=== PATIENT | male | born 1950 | race Native Hawaiian/Other Pacific Islander ===

== ENCOUNTER 2017-02-27 15:29 | Emergency (ER) | payer MEDICARE, OTHER ==
[2017-02-27] MEDS ORDERED: ONDANSETRON 4 MG/2 ML VIAL IVP STA (17:05)
[2017-02-27] MEDS ORDERED: KETOROLAC 30 MG/ML 1 ML VIAL IVP STA (17:05)
[2017-02-27] MEDS ORDERED: SODIUM CHLORIDE 0.9% 2,000 ML IV ONE (17:05)
[2017-02-27 17:25] VITALS: RESP 18
[2017-02-27 17:46] LABS: Basophils % (A) 0 %; CH 32.5; CHCM 34.6; Eosinophils # (A) 0.1 k/uL (0-0.7); Eosinophils % (A) 1 %; HCT 39.6 % (39.0-53.0); HDW 2.62; Luc # (Auto) 0.07; Luc % (Auto) 1; Lymphocytes # (A) 0.8 k/uL (1.0-4.8); Lymphocytes % (A) 9 %; MCH 33.4 pg (25.0-35.0); MCHC 35.4 g/dL (31.0-37.0); MCV 94.3 fL (80.0-100.0); Mean Platelet Volume 7.9; Monocytes # (A) 0.6 k/uL (0-1.0); Monocytes % (A) 6 %; Neutrophils # (A) 7.8 k/uL (1.3-7.7); Neutrophils % (A) 83 %; WBC 9.5 k/uL (3.8-10.6); WBC (Perox) 9.35
[2017-02-27 18:00] LABS: ALT 26 U/L (21-72); AST 17 U/L (17-59); Alkaline Phosphatase 64 U/L (38-126); Anion Gap 12 mmol/L; Blood Urea Nitrogen 21 mg/dL (9-20); Calcium 9.3 mg/dL (8.4-10.2); Carbon Dioxide 28 mmol/L (22-30); Chloride 95 mmol/L (98-107); Glucose 147 mg/dL (74-99); Non-African American GFR(MDRD) >60 (>60 ml/min/1.73 sqM); Potassium 4.1 mmol/L (3.5-5.1); Sodium 135 mmol/L (137-145); Total Bilirubin 1.2 mg/dL (0.2-1.3)
--- NOTE | 2017-02-27 18:02 | ED ---
Nausea/Vomiting/Diarrhea HPI - General Chief complaint: Nausea/Vomiting/Diarrhea Stated complaint: fever Time Seen by Provider: 02/27/17 16:44 Source: patient Mode of arrival: ambulatory Limitations: no limitations - History of Present Illness Initial comments: Patient is a 66-year-old male with a past medical history of liver transplant presents with a chief complaint of nausea and vomiting. Patient states this has been going on for about 2 days. Patient states that he was around his grandchildren who had similar symptoms several days ago. Patient cannot identify any aggravating or alleviating factors however he does state that he is more nauseous when he tries to eat solid foods. He states he has been able to keep water down. Patient states she has thrown up about 4 times a day, it consists of bile, and stomach contents. MD complaint: nausea, vomiting Onset/Timin -: days(s) Description of Vomiting: food contents, watery, bilious Associated Abdominal Pain: No Radiation: none Severity: moderate Improves with: none Worsens with: eating Context: sick contacts Associated Symptoms: denies other symptoms - Related Data Home Medications Medication Instructions Recorded Confirmed Acetaminophen Tab [Tylenol Tab] 1,000 mg PO Q6HR PRN 02/27/17 02/27/17 Atorvastatin [Lipitor] 20 mg PO HS 02/27/17 02/27/17 Tacrolimus [Prograf] 1 mg PO HS 02/27/17 02/27/17 Tacrolimus [Prograf] 2 mg PO QAM 02/27/17 02/27/17 Allergies Allergy/AdvReac Type Severity Reaction Status Date / Time cephalexin [From Keflex] Allergy Unknown Verified 02/27/17 17:01 Review of Systems ROS Statement: Those systems with pertinent positive or pertinent negative responses have been documented in the HPI. Patient admits to headache, nausea, and vomiting. Patient denies any dizziness , visual changes, chest pain, shortness of breath, abdominal pain, dysuria, diarrhea, constipation. ROS Other: All systems not noted in ROS Statement are negative. Past Medical History Past Medical History: Hyperlipidemia, Myocardial Infarction ([place]) Additional Past Medical History / Comment(s): Hep C History of Any Multi-Drug Resistant Organisms: None Reported Additional Past Surgical History / Comment(s): liver transplant Past Psychological History: No Psychological Hx Reported Smoking Status: Current every day smoker Past Alcohol Use History: None Reported Past Drug Use History: None Reported General Exam Limitations: no limitations General appearance: alert, in no apparent distress Head exam: Present: atraumatic, normocephalic Eye exam: Present: normal appearance ENT exam: Present: mucous membranes moist Neck exam: Present: normal inspection Respiratory exam: Present: decreased breath sounds Cardiovascular Exam: Present: regular rate, normal rhythm GI/Abdominal exam: Present: soft Rectal exam: Present: deferred Extremities exam: Present: normal inspection Back exam: Present: normal inspection Neurological exam: Present: alert, oriented X3 Psychiatric exam: Present: normal affect, normal mood Skin exam: Present: warm, dry, intact Course Vital Signs 02/27/17 02/27/17 02/27/17 15:40 17:03 18:16 Temperature 99.4 F 98.7 F 99.1 F Pulse Rate 107 H 88 86 Respiratory 17 18 18 Rate Blood Pressure 136/71 141/76 141/72 O2 Sat by Pulse 94 L 93 L 96 Oximetry Medical Decision Making - Medical Decision Making Patient is 66-year-old male who presents with chief complaint of nausea and vomiting. This been going on for 2 days. Patient has a history of liver transplant, and his main concern is that he is unable to keep down his antirejection medications. Patient states that he was recently around his grandchildren who had the same gastrointestinal symptoms. The patient states he thinks he may have picked up the virus that they had. Patient denies any chest pain, shortness of breath, dysuria. We'll send basic lab work, we'll check electrolytes, liver profile. Patient given 2 L of IV fluid in the emergency department, and Zofran for nausea. 7:06 PM On reevaluation, the patient states that his nausea has subsided. He is able to tolerate by mouth intake at this time. Patient states he does not have any other concerns. This time, patient is stable for discharge. Instructed to return to the emergency department if his symptoms worsen, or change in anyway. Further instructed to follow up with his primary care physician in 3-5 days. Patient will be prescribed Zofran, and Motrin. - Lab Data Result diagrams: 02/27/17 17:35 02/27/17 17:35 Lab Results 02/27/17 02/27/17 Range/Units 17:35 17:35 WBC 9.5 (3.8-10.6) k/uL RBC 4.20 L (4.30-5.90) m/uL Hgb 14.0 (13.0-17.5) gm/dL Hct 39.6 (39.0-53.0) % MCV 94.3 (80.0-100.0) fL MCH 33.4 (25.0-35.0) pg MCHC 35.4 (31.0-37.0) g/dL RDW 13.0 (11.5-15.5) % Plt Count 152 (150-450) k/uL Neutrophils % 83 % Lymphocytes % 9 % Monocytes % 6 % Eosinophils % 1 % Basophils % 0 % Neutrophils # 7.8 H (1.3-7.7) k/uL Lymphocytes # 0.8 L (1.0-4.8) k/uL Monocytes # 0.6 (0-1.0) k/uL Eosinophils # 0.1 (0-0.7) k/uL Basophils # 0.0 (0-0.2) k/uL Sodium 135 L (137-145) mmol/L Potassium 4.1 (3.5-5.1) mmol/L Chloride 95 L (98-107) mmol/L Carbon Dioxide 28 (22-30) mmol/L Anion Gap 12 mmol/L BUN 21 H (9-20) mg/dL Creatinine 0.96 (0.66-1.25) mg/dL Est GFR (MDRD) Af Amer >60 (>60 ml/min/1.73 sqM) Est GFR (MDRD) Non-Af >60 (>60 ml/min/1.73 sqM) Glucose 147 H (74-99) mg/dL Calcium 9.3 (8.4-10.2) mg/dL Total Bilirubin 1.2 (0.2-1.3) mg/dL AST 17 (17-59) U/L ALT 26 (21-72) U/L Alkaline Phosphatase 64 (38-126) U/L Total Protein 7.0 (6.3-8.2) g/dL Albumin 4.3 (3.5-5.0) g/dL Disposition Clinical Impression: Nausea and vomiting, Viral enteritis Disposition: HOME SELF-CARE Condition: Good Instructions: Acute Nausea and Vomiting (ED) Referrals: Nonstaff,Physician [Primary Care Provider] - 1-2 days Time of Disposition: 19:12
[2017-02-27 19:30] VITALS: BP 142/69; PULSE 81; TEMP 98.7
== END 2017-02-27 19:31 | disposition home or self-care (01) ==
LOC: EC 15:29
DX: A08.4 Viral intestinal infection, unspecified (principal); E78.5 Hyperlipidemia, unspecified; F17.200 Nicotine dependence, unspecified, uncomplicated; Z88.1 Allergy status to other antibiotic agents; Z79.899 Other long term (current) drug therapy
CPT/HCPCS: 99284; 96374; 96375; 96361 ×2; 36415; 80053; 85025; J2405; J1885

== ENCOUNTER → 2019-04-09 | Outpatient (CLI) | payer MEDICARE, OTHER ==
--- NOTE | 2019-04-09 14:48 | CT ---
EXAMINATION TYPE: CT chest wo con DATE OF EXAM: 04/09/2019 COMPARISON: None HISTORY: Difficulty breathing CT DLP: 457.5 mGycm. Automated Exposure Control for Dose Reduction was Utilized. TECHNIQUE: CT scan of the thorax is performed without IV contrast. FINDINGS: There is mild diffuse pulmonary emphysema. There is subpleural reticular interstitial infiltrate in t he periphery of both lungs. There is no suspicious pulmonary mass. There is no mediastinal adenopathy . There are no hilar masses. Heart size is fairly normal. There is no evidence of bronchial obstructi on. There is no aortic aneurysm. No bronchiectasis. IMPRESSION: Mild pulmonary emphysema. Subpleural mild peripheral reticular interstitial density consi stent with fairly mild interstitial fibrosis.
== END | disposition home or self-care (01) ==
LOC: RADCTMAIN 14:08
PROVIDERS: ATTEND Internal Medicine Critical Care Medicine
DX: J43.9 Emphysema, unspecified (principal); J84.9 Interstitial pulmonary disease, unspecified; Z88.1 Allergy status to other antibiotic agents
CPT/HCPCS: 71250

== ENCOUNTER 2019-08-01 21:18 | Inpatient (IN) | payer MEDICARE, OTHER ==
[2019-08-01] MEDS ORDERED: IPRATROPIUM 0.5 MG/2.5 ML NEBU INHALATION STA (21:33)
[2019-08-01] MEDS ORDERED: methylPREDNISolone SOD SUCCI 125 MG/2 ML VIAL IV STA (21:33)
[2019-08-01] MEDS ORDERED: ALBUTEROL NEBULIZED 2.5 MG/3 ML INHALATION STA (21:33)
--- NOTE | 2019-08-01 21:48 | ED ---
General Adult HPI - General Chief complaint: Shortness of Breath Stated complaint: SOB Time Seen by Provider: 08/01/19 21:27 Source: patient, RN notes reviewed, old records reviewed Mode of arrival: wheelchair Limitations: no limitations - History of Present Illness Initial comments: 68-year-old male history of COPD and a current tobacco use presenting with 2 days of worsening cough and dyspnea. Cough productive of white sputum. Patient reports increased wheezing and difficulty breathing. He denies fever. He has some chest pain which is worse with cough. Previous history of CAD. No history DVT or PE. He denies lower extremity pain or swelling. Denies abdominal pain. Patient does follow with pulmonology - Related Data Home Medications Medication Instructions Recorded Confirmed Acetaminophen Tab [Tylenol Tab] 1,000 mg PO Q6HR PRN 02/27/17 02/27/17 Atorvastatin [Lipitor] 20 mg PO HS 02/27/17 02/27/17 Tacrolimus [Prograf] 1 mg PO HS 02/27/17 02/27/17 Tacrolimus [Prograf] 2 mg PO QAM 02/27/17 02/27/17 Previous Rx's Medication Instructions Recorded Ibuprofen [Motrin] 800 mg PO Q6H PRN #20 tab 02/27/17 Ondansetron [Zofran ODT] 4 mg PO Q8HR #12 tab 02/27/17 Allergies Allergy/AdvReac Type Severity Reaction Status Date / Time cephalexin [From Keflex] Allergy Unknown Verified 08/01/19 21:23 Review of Systems ROS Statement: Those systems with pertinent positive or pertinent negative responses have been documented in the HPI. ROS Other: All systems not noted in ROS Statement are negative. Past Medical History Past Medical History: Hyperlipidemia, Myocardial Infarction ([place]) Additional Past Medical History / Comment(s): Hep C History of Any Multi-Drug Resistant Organisms: None Reported Additional Past Surgical History / Comment(s): liver transplant Past Psychological History: No Psychological Hx Reported Smoking Status: Current every day smoker Past Alcohol Use History: None Reported Past Drug Use History: None Reported General Exam Limitations: no limitations General appearance: alert, in no apparent distress Head exam: Present: atraumatic, normocephalic Eye exam: Present: normal appearance, PERRL ENT exam: Present: normal exam, mucous membranes dry Neck exam: Present: normal inspection. Absent: tenderness, meningismus Respiratory exam: Present: wheezes, decreased breath sounds Cardiovascular Exam: Present: normal rhythm, tachycardia GI/Abdominal exam: Present: soft. Absent: distended, tenderness Extremities exam: Present: normal inspection, normal capillary refill. Absent: pedal edema Back exam: Present: normal inspection. Absent: full ROM Neurological exam: Present: alert, oriented X3, CN II-XII intact. Absent: motor sensory deficit Psychiatric exam: Present: normal affect, normal mood Skin exam: Present: warm, dry, intact. Absent: cyanosis, diaphoretic Course Vital Signs 08/01/19 08/01/19 08/01/19 21:23 21:36 22:18 Temperature 98 F Pulse Rate 108 H 98 Respiratory 26 H 22 Rate Blood Pressure 144/85 O2 Sat by Pulse 93 L Oximetry 08/01/19 08/01/19 08/01/19 22:19 22:25 22:43 Temperature Pulse Rate 98 106 H 107 H Respiratory 18 Rate Blood Pressure 150/82 O2 Sat by Pulse 98 Oximetry EKG Findings - EKG Comments: EKG Findings:: EKG: Sinus tachycardia, left atrial enlargement, no ST segment elevation. Rate of 101, CA interval 148, QRS duration 94, QTC 443 Medical Decision Making - Medical Decision Making 68 yo male with history of COPD and current tobacco use presenting with cough and dyspnea. X-ray obtained, consistent with pulmonary fibrosis, no heart failure, no pneumonia. Patient has normal CBC, negative BNP, negative d-dimer, negative troponin. Given albuterol, Atrovent, steroids in the emergency Department with some improvement. Will be admitted for continued treatment of COPD exacerbation and pulmonary fibrosis. Pulmonology placed on consult. Case discussed with Dr. Nick who will admit patient. - Lab Data Result diagrams: 08/01/19 21:50 08/01/19 21:50 Lab Results 08/01/19 08/01/19 08/01/19 Range/Units 21:50 21:50 21:50 WBC 7.6 (3.8-10.6) k/uL RBC 4.10 L (4.30-5.90) m/uL Hgb 12.8 L (13.0-17.5) gm/dL Hct 39.9 (39.0-53.0) % MCV 97.3 (80.0-100.0) fL MCH 31.2 (25.0-35.0) pg MCHC 32.1 (31.0-37.0) g/dL RDW 13.0 (11.5-15.5) % Plt Count 167 (150-450) k/uL Neutrophils % 80 % Lymphocytes % 11 % Monocytes % 6 % Eosinophils % 1 % Basophils % 1 % Neutrophils # 6.1 (1.3-7.7) k/uL Lymphocytes # 0.8 L (1.0-4.8) k/uL Monocytes # 0.5 (0-1.0) k/uL Eosinophils # 0.1 (0-0.7) k/uL Basophils # 0.1 (0-0.2) k/uL PT (9.0-12.0) sec INR (<1.2) APTT (22.0-30.0) sec D-Dimer (<0.60) mg/L FEU Sodium 140 (137-145) mmol/L Potassium 4.7 (3.5-5.1) mmol/L Chloride 106 (98-107) mmol/L Carbon Dioxide 26 (22-30) mmol/L Anion Gap 8 mmol/L BUN 29 H (9-20) mg/dL Creatinine 1.15 (0.66-1.25) mg/dL Est GFR (CKD-EPI)AfAm 76 (>60 ml/min/1.73 sqM) Est GFR (CKD-EPI)NonAf 66 (>60 ml/min/1.73 sqM) Glucose 137 H (74-99) mg/dL Plasma Lactic Acid Uziel (0.7-2.0) mmol/L Calcium 9.1 (8.4-10.2) mg/dL Magnesium 1.7 (1.6-2.3) mg/dL Total Bilirubin 0.7 (0.2-1.3) mg/dL AST 21 (17-59) U/L ALT 15 (4-49) U/L Alkaline Phosphatase 96 (38-126) U/L Troponin I (0.000-0.034) ng/mL NT-Pro-B Natriuret Pep 358 pg/mL Total Protein 7.3 (6.3-8.2) g/dL Albumin 4.2 (3.5-5.0) g/dL Influenza Type A RNA (Not Detectd) Influenza Type B (PCR) (Not Detectd) 08/01/19 08/01/19 08/01/19 Range/Units 21:50 21:50 21:50 WBC (3.8-10.6) k/uL RBC (4.30-5.90) m/uL Hgb (13.0-17.5) gm/dL Hct (39.0-53.0) % MCV (80.0-100.0) fL MCH (25.0-35.0) pg MCHC (31.0-37.0) g/dL RDW (11.5-15.5) % Plt Count (150-450) k/uL Neutrophils % % Lymphocytes % % Monocytes % % Eosinophils % % Basophils % % Neutrophils # (1.3-7.7) k/uL Lymphocytes # (1.0-4.8) k/uL Monocytes # (0-1.0) k/uL Eosinophils # (0-0.7) k/uL Basophils # (0-0.2) k/uL PT 10.2 (9.0-12.0) sec INR 0.9 (<1.2) APTT 24.6 (22.0-30.0) sec D-Dimer (<0.60) mg/L FEU Sodium (137-145) mmol/L Potassium (3.5-5.1) mmol/L Chloride (98-107) mmol/L Carbon Dioxide (22-30) mmol/L Anion Gap mmol/L BUN (9-20) mg/dL Creatinine (0.66-1.25) mg/dL Est GFR (CKD-EPI)AfAm (>60 ml/min/1.73 sqM) Est GFR (CKD-EPI)NonAf (>60 ml/min/1.73 sqM) Glucose (74-99) mg/dL Plasma Lactic Acid Uziel (0.7-2.0) mmol/L Calcium (8.4-10.2) mg/dL Magnesium (1.6-2.3) mg/dL Total Bilirubin (0.2-1.3) mg/dL AST (17-59) U/L ALT (4-49) U/L Alkaline Phosphatase (38-126) U/L Troponin I 0.014 (0.000-0.034) ng/mL NT-Pro-B Natriuret Pep pg/mL Total Protein (6.3-8.2) g/dL Albumin (3.5-5.0) g/dL Influenza Type A RNA Not Detected (Not Detectd) Influenza Type B (PCR) Not Detected (Not Detectd) 08/01/19 08/01/19 Range/Units 21:50 21:50 WBC (3.8-10.6) k/uL RBC (4.30-5.90) m/uL Hgb (13.0-17.5) gm/dL Hct (39.0-53.0) % MCV (80.0-100.0) fL MCH (25.0-35.0) pg MCHC (31.0-37.0) g/dL RDW (11.5-15.5) % Plt Count (150-450) k/uL Neutrophils % % Lymphocytes % % Monocytes % % Eosinophils % % Basophils % % Neutrophils # (1.3-7.7) k/uL Lymphocytes # (1.0-4.8) k/uL Monocytes # (0-1.0) k/uL Eosinophils # (0-0.7) k/uL Basophils # (0-0.2) k/uL PT (9.0-12.0) sec INR (<1.2) APTT (22.0-30.0) sec D-Dimer 0.22 (<0.60) mg/L FEU Sodium (137-145) mmol/L Potassium (3.5-5.1) mmol/L Chloride (98-107) mmol/L Carbon Dioxide (22-30) mmol/L Anion Gap mmol/L BUN (9-20) mg/dL Creatinine (0.66-1.25) mg/dL Est GFR (CKD-EPI)AfAm (>60 ml/min/1.73 sqM) Est GFR (CKD-EPI)NonAf (>60 ml/min/1.73 sqM) Glucose (74-99) mg/dL Plasma Lactic Acid Uziel 1.2 (0.7-2.0) mmol/L Calcium (8.4-10.2) mg/dL Magnesium (1.6-2.3) mg/dL Total Bilirubin (0.2-1.3) mg/dL AST (17-59) U/L ALT (4-49) U/L Alkaline Phosphatase (38-126) U/L Troponin I (0.000-0.034) ng/mL NT-Pro-B Natriuret Pep pg/mL Total Protein (6.3-8.2) g/dL Albumin (3.5-5.0) g/dL Influenza Type A RNA (Not Detectd) Influenza Type B (PCR) (Not Detectd) Disposition Clinical Impression: Acute exacerbation of chronic obstructive pulmonary disease Disposition: ADMITTED IP TO THIS HOSP Condition: Stable Is patient prescribed a controlled substance at d/c from ED?: No Referrals: Sujit Lai MD [Primary Care Provider] - 1-2 days Decision to Admit Reason: Admit from EC Decision Date: 08/01/19 Decision Time: 23:24
--- NOTE | 2019-08-01 22:10 | XR ---
EXAMINATION TYPE: XR chest 2V DATE OF EXAM: 08/01/2019 COMPARISON: 04/06/2019 HISTORY: Short of breath TECHNIQUE: 2 views FINDINGS: There is coarse interstitial density in the lungs. There is some pleural and pulmonary scar ring at the lung apices. There is no gross heart failure. Heart size is normal. There are chest leads . IMPRESSION: Moderate pulmonary fibrosis that has progressed compared to old exam. No heart failure se en.
[2019-08-01 22:11] LABS: Basophils # (A) 0.1 k/uL (0-0.2); Basophils % (A) 1 %; Eosinophils # (A) 0.1 k/uL (0-0.7); Eosinophils % (A) 1 %; HCT 39.9 % (39.0-53.0); HGB 12.8 gm/dL (13.0-17.5); Lymphocytes # (A) 0.8 k/uL (1.0-4.8); Lymphocytes % (A) 11 %; MCH 31.2 pg (25.0-35.0); MCHC 32.1 g/dL (31.0-37.0); MCV 97.3 fL (80.0-100.0); Mean Platelet Volume 8.2; Monocytes # (A) 0.5 k/uL (0-1.0); Monocytes % (A) 6 %; Neutrophils # (A) 6.1 k/uL (1.3-7.7); Neutrophils % (A) 80 %; Platelet Count 167 k/uL (150-450); WBC 7.6 k/uL (3.8-10.6)
[2019-08-01 22:21] LABS: INR 0.9 (<1.2); Partial Thromboplastin Time 24.6 sec (22.0-30.0); Prothrombin Time 10.2 sec (9.0-12.0)
[2019-08-01 22:22] LABS: Albumin 4.2 g/dL (3.5-5.0); Calcium 9.1 mg/dL (8.4-10.2); Magnesium 1.7 mg/dL (1.6-2.3); Total Bilirubin 0.7 mg/dL (0.2-1.3); Total Protein 7.3 g/dL (6.3-8.2)
[2019-08-01 22:23] LABS: Potassium 4.7 mmol/L (3.5-5.1)
[2019-08-01] MEDS ORDERED: IPRATROPIUM-ALBUTEROL 3 ML NEB INHALATION PRN (23:21)
[2019-08-02] MEDS: methylPREDNISolone SOD SUCCI 125 MG/2 ML VIAL IV SCH ×3 (01:37→12:57)
--- NOTE | 2019-08-02 01:39 | P.HPIM ---
History of Present Illness H&P Date: 08/01/19 Chief Complaint: Shortness of breath productive sputum 68-year-old male with history of hepatitis C status post liver transplant, COPD not on home oxygen Patient comes in today due to 2 day history of shortness of breath worse than his baseline. Associated with productive cough of whitish greenish sputum. Denies any fevers or chills denies any sick contact denies any recent traveling denies any sore throat or runny nose. Patient tested negative for influenza in the ED. Patient admits to ongoing smoking of at least half a pack a day he smokes outside has been getting exposed to the cold weather he thinks that has played a role and to that this attack of exacerbation. He otherwise is compliant with his medications. He does not use any home oxygen. In the ED chest x-ray showed worsening fibrosis compared to before. Patient was admitted for COPD management and pulmonary evaluation Otherwise patient denies any abdominal pain nausea vomiting denies any changes in his bowel or urinary habits Review of Systems Pertinent positives as noted in HPI. All other systems were reviewed and are negative Past Medical History Past Medical History: Cancer, Chest Pain / Angina, COPD, Hyperlipidemia, Liver Disease, Myocardial Infarction ([place]) Additional Past Medical History / Comment(s): Hep C, liver cancer Last Myocardial Infarction Date:: 2016 History of Any Multi-Drug Resistant Organisms: None Reported Additional Past Surgical History / Comment(s): liver transplant in 2008 Past Anesthesia/Blood Transfusion Reactions: No Reported Reaction Past Psychological History: No Psychological Hx Reported Smoking Status: Former smoker Past Alcohol Use History: None Reported Past Drug Use History: None Reported - Past Family History Mother Family Medical History: Myocardial Infarction ([place]), Pneumonia Father Family Medical History: Myocardial Infarction ([place]) Medications and Allergies Home Medications Medication Instructions Recorded Confirmed Type Acetaminophen Tab [Tylenol Tab] 1,000 mg PO Q6HR PRN 02/27/17 02/27/17 History Atorvastatin [Lipitor] 20 mg PO HS 02/27/17 08/02/19 History Ibuprofen [Motrin] 800 mg PO Q6H PRN #20 tab 02/27/17 Rx Ondansetron [Zofran ODT] 4 mg PO Q8HR #12 tab 02/27/17 Rx Tacrolimus [Prograf] 1 mg PO HS 02/27/17 08/02/19 History Tacrolimus [Prograf] 2 mg PO QAM 02/27/17 08/02/19 History Allergies Allergy/AdvReac Type Severity Reaction Status Date / Time cephalexin [From Keflex] Allergy Unknown Verified 08/01/19 21:23 Physical Exam Vitals: Vital Signs Temp Pulse Pulse Resp BP BP Pulse Ox 08/02/19 00:05 98.1 F 109 H 20 157/74 92 L 08/01/19 22:43 107 H 08/01/19 22:25 106 H 08/01/19 22:19 98 18 150/82 98 08/01/19 22:18 98 08/01/19 21:36 22 08/01/19 21:23 98 F 108 H 26 H 144/85 93 L Intake and Output 08/01/19 08/01/19 08/02/19 14:59 22:59 06:59 Other: # Voids 1 Weight 72.575 kg 72.575 kg Constitutional: No acute distress, conversant, pleasant Eyes: Anicteric sclerae, moist conjunctiva, no lid-lag Pupils equal round reactive to light ENMT: NC/AT Oropharynx clear, no erythema, exudates Neck: Supple, FROM, no masses, or JVD No carotid bruits No thyromegaly Lungs: Clear to auscultation Clear to percussion Normal respiratory effort, no accessory muscle use Cardiovascular: Heart regular in rate and rhythm, No murmurs, gallops, or rubs No peripheral edema Abdominal: Soft Nontender, no guarding, rebound or rigidity Abdomen moving with respiration Normoactive bowel sounds No hepatomegaly, No splenomegaly No palpable mass No abdominal wall hernia noted Skin: Normal temperature, tone, texture, turgor No induration No subcutaneous nodules No rash, lesions No ulcers Extremities: No digital cyanosis No clubbing Pedal pulses intact and symmetrical Radial pulses intact and symmetrical No calf tenderness Psychiatric: Alert and oriented to person, place and time Appropriate affect fair judgement Neuro Muscles Strength 5/5 in all 4 extremities Sensation to light touch grossly present throughout Cranial nerves II-XII grossly intact No focal sensory deficits Lymphatics: no palpable cervical or supraclavicular , or inguinal lymph no quinn Results CBC & Chem 7: 08/01/19 21:50 08/01/19 21:50 Labs: Abnormal Lab Results - Last 24 Hours (Table) 08/01/19 08/01/19 Range/Units 21:50 21:50 RBC 4.10 L (4.30-5.90) m/uL Hgb 12.8 L (13.0-17.5) gm/dL Lymphocytes # 0.8 L (1.0-4.8) k/uL BUN 29 H (9-20) mg/dL Glucose 137 H (74-99) mg/dL Thrombosis Risk Factor Assmnt - Choose All That Apply Each Factor Represents 1 point: Abnormal pulmonary function (COPD), Acute [place] Other Risk Factors: Yes Each Risk Factor Represents 2 Points: Age 61-74 years Thrombosis Risk Factor Assessment Total Risk Factor Score: 4 Thrombosis Risk Factor Assessment Level: Moderate Risk Assessment and Plan Assessment: 68-year-old male with history of CAD, liver transplant secondary to hep C, COPD Comes in with acute COPD exacerbation symptoms chest x-ray showed worsening pulmonary fibrosis. D-dimer negative, patient admitted under observation with anticipated length of stay less than to midnight for acute COPD exacerbation and pulmonary evaluation Plan: Acute COPD exacerbation Worsening pulmonary fibrosis on chest x-ray IV systemic steroids Breathing treatments when necessary Counseled to quit smoking Pulmonary consult D-dimer negative Assess home oxygen requirement prior to discharge Chronic conditions Status post liver transplant for history of hepatitis C, continue tacrolimus Tobacco smoking counseled to quit smoking History of CAD Full code DVT prophylaxis: Heparin subcu 3 times a day Discussed with: Patient, ER, RN Anticipated length of stay less than [address]: Home A total of 60 minutes was spent on the care of this complex patient more than 50% of the time was spent in counseling and care coordination.
[2019-08-02] MEDS ORDERED: HEPARIN SODIUM,PORCINE 5,000 UNIT/ML 1 ML VIAL SQ SCH (08:00)
[2019-08-02] MEDS: IPRATROPIUM-ALBUTEROL 3 ML NEB INHALATION SCH ×3 (08:58→15:53)
[2019-08-02] MEDS ORDERED: AZITHROMYCIN 500 MG TAB PO SCH (09:00)
[2019-08-02] MEDS ORDERED: TACROLIMUS 1 MG CAP PO SCH ×2 (09:00→21:00)
--- NOTE | 2019-08-02 09:42 | P.CNPUL ---
History of Present Illness Consult date: 08/02/19 Reason for consult: dyspnea History of present illness: 68-year-old male patient with known history of COPD with a baseline FEV1 of 2.05 L which is 60% of predicted and addition to history of hepatitis C, chronic liver disease, coronary artery disease and hyperlipidemia. Note that the patient also has a component of pulmonary fibrosis. His last CAT scan of the chest that was done on 04/09/2019 showed mild emphysema and some mild interstiti al fibrosis involving the lung peripheries, subpleural distribution. He has had previous history of life-threatening hemoptysis requiring bronchial artery embolization. The had history of smoking about [id number]. He had seen pulmonary services at [facility]. He did give history of severe hemoptysis requiring intubation, mechanical ventilation and embolization.Patient also has a recipient of a liver transplant in his been on long-term immunosuppression with Prograf. The patient is a chronic smoker and smokes around one pack of cigarettes a day he carries more than [id number] smoking history. No several chanel. He presented to the hospital because of increased cough and chest congestion and some increased wheezing. The patient had no fever. No chills. No sick contacts. Denied having any symptoms of URI. Influenza screen came back negative. No hemoptysis. No pleurisy. Chest x-ray showed COPD and some chronic fibrotic changes in lung bases. No evidence of any acute pneumonia. No significant leukocytosis. He was started on Zithromax. He was started on IV Solu-Medrol. He has a maintained on Anoro Ellipta also use of albuterol and aspirin basis. No home oxygen. Review of Systems Constitutional: Reports fatigue Ears: deny: decreased hearing, ear discharge, earache, tinnitus Ears, nose, mouth and throat: Reports as per HPI Breasts: absent: as per HPI, gynecomastia Cardiovascular: Reports decreased exercise tolerance, Reports dyspnea on exertion Respiratory: Reports cough, Reports dyspnea, Reports wheezing Gastrointestinal: Reports as per HPI Genitourinary: Reports as per HPI Musculoskeletal: Reports as per HPI Musculoskeletal: absent: ankle pain, ankle stiffness, ankle swelling Integumentary: Reports as per HPI Neurological: Reports as per HPI Psychiatric: Reports as per HPI Endocrine: Reports as per HPI Hematologic/Lymphatic: Reports as per HPI Past Medical History Past Medical History: Cancer, Chest Pain / Angina, COPD, Hyperlipidemia, Liver Disease, Myocardial Infarction ([place]) Additional Past Medical History / Comment(s): liver transplantation for liver cirrhosis, history of hepatitis C, COPD, limited fibrosis of the lungs/interstitial lung disease/pulmonary fibrosis Last Myocardial Infarction Date:: 2016 History of Any Multi-Drug Resistant Organisms: None Reported Additional Past Surgical History / Comment(s): liver transplant in 2008 Past Anesthesia/Blood Transfusion Reactions: No Reported Reaction Past Psychological History: No Psychological Hx Reported Smoking Status: Former smoker Past Alcohol Use History: None Reported Past Drug Use History: None Reported - Past Family History Mother Family Medical History: Myocardial Infarction ([place]), Pneumonia Father Family Medical History: Myocardial Infarction ([place]) Medications and Allergies Home Medications Medication Instructions Recorded Confirmed Type Atorvastatin [Lipitor] 20 mg PO HS 02/27/17 08/02/19 History Tacrolimus [Prograf] 1 mg PO HS 02/27/17 08/02/19 History Tacrolimus [Prograf] 2 mg PO QAM 02/27/17 08/02/19 History Albuterol Inhaler [Ventolin Hfa 2 puff INHALATION RT-TID PRN 08/02/19 08/02/19 History Inhaler] Naproxen 375 mg PO BID-W/MEALS 08/02/19 08/02/19 History Umeclidinium Brm/Vilanterol Tr 1 puff INHALATION DAILY@1200 08/02/19 08/02/19 History [Anoro Ellipta 62.5-25 Mcg INH] Allergies Allergy/AdvReac Type Severity Reaction Status Date / Time cephalexin [From Keflex] Allergy Unknown Verified 08/02/19 08:36 Physical Exam Vitals: Vital Signs Temp Pulse Pulse Resp BP BP Pulse Ox 08/02/19 09:12 100 08/02/19 09:01 96 08/02/19 05:35 97.6 F 89 20 148/75 96 08/02/19 01:56 109 H 08/02/19 00:05 98.1 F 109 H 20 157/74 92 L 08/01/19 22:43 107 H 08/01/19 22:25 106 H 08/01/19 22:19 98 18 150/82 98 08/01/19 22:18 98 08/01/19 21:36 22 08/01/19 21:23 98 F 108 H 26 H 144/85 93 L Intake and Output 08/01/19 08/02/19 08/02/19 22:59 06:59 14:59 Other: Voiding Method Toilet # Voids 2 Weight 72.575 kg 72.575 kg The patient appeared well nourished and normally developed. Vital signs as documented. Head exam is unremarkable. No scleral icterus or corneal arcus noted. Neck is without jugular venous distension, thyromegaly, or carotid bruits. Carotid upstrokes are brisk bilaterally. Lungs initial breath sound along with scattered expiratory wheezes heard throughout the lung vidal bilaterally and the patient has some coarse crackles in lung bases bilaterally consistent with interstitial lung disease. Cardiac exam reveals the PMI to be normally sized and situated. Rhythm is regular. First and second heart sounds normal. No murmurs, rubs or gallops. Abdominal exam reveals normal bowel sounds, no masses, no organomegaly and no aortic enlargement.the patient also has a large abdominal wall scar related to previous transplantation. No direct tenderness or rebound tensile guarding Extremities are nonedematous and both femoral and pedal pulses are normal.Examination of the skin revealed no evidence of significant rashes, suspicious appearing nevi or other concerning lesions.neurologically awake and alert and is no focal neurological deficits. Results - Laboratory Findings CBC and BMP: 08/01/19 21:50 08/01/19 21:50 PT/INR, D-dimer PT 10.2 sec (9.0-12.0) 08/01/19 21:50 INR 0.9 (<1.2) 08/01/19 21:50 D-Dimer 0.22 mg/L FEU (<0.60) 08/01/19 21:50 Abnormal lab findings: Abnormal Labs 08/01/19 08/01/19 21:50 21:50 RBC 4.10 L Hgb 12.8 L Lymphocytes # 0.8 L BUN 29 H Glucose 137 H - Diagnostic Findings Chest x-ray: image reviewed Assessment and Plan Plan: 1 acute COPD exacerbation/tracheobronchitis with secondary shortness of breathno clear evidence of pneumonia based on the chest x-ray findings. Nevertheless, t he patient is immunosuppressed with Prograft and he was Hospital as for an acute COPD exacerbation for antibiotics and steroid treatments. 2 interstitial lung disease/chronic pulmonary fibrosis and lung bases, rule out possibility of IPF 3 history of hepatitis C infection of the liver, treated with Harvoni 4 history of liver cirrhosis 5 history of liver transportation the patient is currently on Prograf for immunosuppression 6 smoking 7hyperlipidemia Plan Smoking cessation counseling was done. Chest x-ray was reviewed. The patient has an acute COPD exacerbation. Recommend bronchodilatorsand systemic steroids and the patient can be discharged home on a prednisone burst taper. Continue Prograf. Unable to cough out any sputum for cultures. His oxygenation will be reevaluated, or discharge. Continue Anoro Ellipta as maintenance for COPD. He does have some by the pulmonary fibrosis that needs to be monitored on outpatient basis.
[2019-08-02] MEDS ORDERED: ACETAMINOPHEN TAB 325 MG TAB PO PRN (13:05)
[2019-08-02] MEDS ORDERED: ONDANSETRON 4 MG/2 ML VIAL IVP PRN (13:05)
[2019-08-02 13:17] VITALS: BP 161/86; RESP 16; TEMP 98
--- NOTE | 2019-08-02 15:01 | P.DS ---
Providers Date of admission: 08/01/19 23:22 Expected date of discharge: 08/02/19 Attending physician: Sari Lui MD Consults: 08/01/19 23:21 Consult Physician Routine Consulting Provider: Kj Esparza Consult Reason/Comments: COPD, Do you want consulting provider notified?: Yes Primary care physician: Sujit Lai MD Hospital Course: Discharge Diagnosis: Acute exacerbation of COPD Acute bronchitis Tobacco abuse Chronic immunosuppression secondary to liver transplant HLD CAD Hospital Course: Patient is a 68-year-old male known history of COPD and some pulmonary fibrosis, chronic liver disease status post transplant immunosuppressed with tacrolimus, coronary artery disease, and dyslipidemia who presented to the emergency department with complaints of shortness of breath. In the ER he underwent an extensive evaluation. On arrival he was to The respiratory rate of 26 and labored breathing, his heart rate was elevated at 108. Initial laboratory analysis showed an elevated BUN at 29, glucose 137, and hemoglobin of 12.8. Influenza and d-dimer were both negative. Chest x-ray demonstrated moderate pulmonary fibrosis that has progressed compared to old exam. He was started on IV steroids, Zithromax, and bronchodilators. Pulmonary critical care was consulted who recommended continuing bronchodilators and discharged home with a steroid taper. He was up and ambulating and was not hypoxic. He had improved faster than anticipated and was determined stable for discharge home. He will complete a 9 day taper of prednisone, a course of Zithromax, and Mucinex. He'll follow-up with Dr. Esparza in 10 days, and Dr. Lai in 1-2 days. He will take his albuterol every 4 hours for the next 3 days and then resume as needed. Patient seen and examined at bedside. Breathing is much better, wheezing resolved. Some chest tightness that he says it is not his heart and improves with breathing treatments. Vital signs reviewed and stable. General: non toxic, no distress, appears at stated age Derm: warm, dry Head: atraumatic, normocephalic, symmetric Eyes: EOMI, no lid lag, anicteric sclera Mouth: no lip lesion, mucus membranes moist Cardiovascular: S1S2 reg, no murmur, positive posterior tibial pulse bilateral, Lungs: CTA bilateral, no rhonchi, no rales , no accessory muscle use Abdominal: soft, nontender to palpation, no guarding, no appreciable organomegaly Ext: no gross muscle atrophy, no edema, no contractures Neuro: CN II-XI grossly intact, no focal neuro deficits Psych: Alert, oriented, appropriate affect A total of 25 minutes of time were spent preparing this complex discharge summary . Patient Condition at Discharge: Stable Plan - Discharge Summary Discharge Rx Participant: No New Discharge Prescriptions: New guaiFENesin [Mucinex] 600 mg PO BID PRN #30 tab.er.12h PRN Reason: Cough predniSONE 0 mg PO DIRECTED #20 tab Azithromycin [Zithromax] 500 mg PO DAILY #5 tab Continue Tacrolimus [Prograf] 1 mg PO HS Tacrolimus [Prograf] 2 mg PO QAM Atorvastatin [Lipitor] 20 mg PO HS Naproxen 375 mg PO BID-W/MEALS Umeclidinium Brm/Vilanterol Tr [Anoro Ellipta 62.5-25 Mcg INH] 1 puff INHALATION DAILY@1200 Albuterol Inhaler [Ventolin Hfa Inhaler] 2 puff INHALATION RT-TID PRN PRN Reason: Shortness Of Breath Discharge Medication List Atorvastatin [Lipitor] 20 mg PO HS 02/27/17 [History] Tacrolimus [Prograf] 1 mg PO HS 02/27/17 [History] Tacrolimus [Prograf] 2 mg PO QAM 02/27/17 [History] Albuterol Inhaler [Ventolin Hfa Inhaler] 2 puff INHALATION RT-TID PRN 08/02/19 [History] Azithromycin [Zithromax] 500 mg PO DAILY #5 tab 08/02/19 [Rx] Naproxen 375 mg PO BID-W/MEALS 08/02/19 [History] Umeclidinium Brm/Vilanterol Tr [Anoro Ellipta 62.5-25 Mcg INH] 1 puff INHALATION DAILY@1200 08/02/19 [History] guaiFENesin [Mucinex] 600 mg PO BID PRN #30 tab.er.12h 08/02/19 [Rx] predniSONE 0 mg PO DIRECTED #20 tab 08/02/19 [Rx] Follow up Appointment(s)/Referral(s): Sujit Lai MD [Primary Care Provider] - 1-2 days
[2019-08-02 16:04] VITALS: PULSE 100
[2019-08-02] MEDS ORDERED: ATORVASTATIN 20 MG TAB PO SCH (21:00)
== END 2019-08-02 16:17 | disposition home or self-care (01) | DRG 191 ==
LOC: EC 21:18 → 6NMEDSUR 23:22
PROVIDERS: ADMIT Internal Medicine; ATTEND Internal Medicine
DX: J44.1 Chronic obstructive pulmonary disease with (acute) exacerbation (principal); Z94.4 Liver transplant status; J44.0 Chronic obstructive pulmonary disease with (acute) lower respiratory infection; E78.5 Hyperlipidemia, unspecified; F17.210 Nicotine dependence, cigarettes, uncomplicated; I25.10 Atherosclerotic heart disease of native coronary artery without angina pectoris; J20.9 Acute bronchitis, unspecified; J84.10 Pulmonary fibrosis, unspecified; Z79.899 Other long term (current) drug therapy; I25.2 Old myocardial infarction; Z82.49 Family history of ischemic heart disease and other diseases of the circulatory system; Z85.05 Personal history of malignant neoplasm of liver
CPT/HCPCS: 36415; 71046; 80053; 83605; 83735; 83880; 84484; 85025; 85379; 85610; 85730; 87040; 87502; 93005; 94640; 96374; 99285

== ENCOUNTER 2022-02-04 13:51 | Emergency (ER) | payer MEDICARE, OTHER ==
[2022-02-04 13:59] VITALS: TEMP 97.6
[2022-02-04] MEDS ORDERED: KETOROLAC 15 MG/ML 1 ML VIAL IVP STA (14:13)
--- NOTE | 2022-02-04 14:19 | ED ---
General Adult HPI - General Source: patient, RN notes reviewed, old records reviewed Mode of arrival: ambulatory Limitations: no limitations <Fletcher Soriano - Last Filed: 02/04/22 14:48> <Kj Munroe - Last Filed: 02/04/22 16:39> - General Chief complaint: Chest Pain Stated complaint: chest & back pain Time Seen by Provider: 02/04/22 14:00 - History of Present Illness Initial comments: This is a 71-year-old male who presents emergency Department with a past medical history significant for smoking. Patient states he thinks he might have a heart attack in the 90s. Patient comes in today because she's been having right-sided chest pain for the last 5 days. Patient states on the right lateral aspect of his chest radiates a little bit into the upper back. Patient denies any worsening difficulty breathing. Patient states she does have history of COPD. Patient denies any fever chills or cough. Patient states occasionally takes a deep breath does make it worse. Patient states the pain is always been there for 5 days but on occasion it gets considerably worse for a few seconds. There is no rashes lesions or areas of erythema. Patient denies any abdominal pain patient denies nausea or vomiting. Patient denies headache patient denies numbness weakness. (Fletcher Soriano) - Related Data Home Medications Medication Instructions Recorded Confirmed Atorvastatin [Lipitor] 20 mg PO HS 02/27/17 08/02/19 Tacrolimus [Prograf] 1 mg PO HS 02/27/17 08/02/19 Tacrolimus [Prograf] 2 mg PO QAM 02/27/17 08/02/19 Albuterol Inhaler [Ventolin Hfa 2 puff INHALATION RT-TID PRN 08/02/19 08/02/19 Inhaler] Naproxen 375 mg PO BID-W/MEALS 08/02/19 08/02/19 Umeclidinium Brm/Vilanterol Tr 1 puff INHALATION DAILY@1200 08/02/19 08/02/19 [Anoro Ellipta 62.5-25 Mcg INH] Previous Rx's Medication Instructions Recorded Azithromycin [Zithromax] 500 mg PO DAILY #5 tab 08/02/19 guaiFENesin [Mucinex] 600 mg PO BID PRN #30 tab.er.12h 08/02/19 predniSONE [Deltasone] 0 mg PO DIRECTED #20 tab 08/02/19 Allergies Allergy/AdvReac Type Severity Reaction Status Date / Time cephalexin [From Keflex] Allergy Unknown Verified 02/04/22 13:59 Review of Systems ROS Other: All systems not noted in ROS Statement are negative. <Fletcher Soriano - Last Filed: 02/04/22 14:48> ROS Other: All systems not noted in ROS Statement are negative. <Kj Munroe - Last Filed: 02/04/22 16:39> ROS Statement: Those systems with pertinent positive or pertinent negative responses have been documented in the HPI. Past Medical History Past Medical History: Cancer, Chest Pain / Angina, COPD, Hyperlipidemia, Liver Disease, Myocardial Infarction ([place]) Additional Past Medical History / Comment(s): liver transplantation for liver cirrhosis, history of hepatitis C, COPD, limited fibrosis of the dave gs/interstitial lung disease/pulmonary fibrosis Last Myocardial Infarction Date:: 2016 History of Any Multi-Drug Resistant Organisms: None Reported Additional Past Surgical History / Comment(s): liver transplant in 2008 Past Anesthesia/Blood Transfusion Reactions: No Reported Reaction Past Psychological History: No Psychological Hx Reported Smoking Status: Current every day smoker Past Alcohol Use History: None Reported Past Drug Use History: None Reported - Past Family History Mother Family Medical History: Myocardial Infarction ([place]), Pneumonia Father Family Medical History: Myocardial Infarction ([place]) <Fletcher Soriano - Last Filed: 02/04/22 14:48> General Exam Limitations: no limitations <Fletcher Soriano - Last Filed: 02/04/22 14:48> - General Exam Comments Initial Comments: GENERAL: Patient is well-developed and well-nourished. Patient is nontoxic and well-hydrated and is in mild distress. ENT: Neck is soft and supple. No significant lymphadenopathy is noted. Oropharynx is clear. Moist mucous membranes. Neck has full range of motion without eliciting any pain. EYES: The sclera were anicteric and conjunctiva were pink and moist. Extraocular movements were intact and pupils were equal round and reactive to light. Eyelids were unremarkable. PULMONARY: Unlabored respirations. Good breath sounds bilaterally. No audible rales rhonchi or wheezing was noted. CARDIOVASCULAR: There is a regular rate and rhythm without any murmurs gallops or rubs. ABDOMEN: Soft and nontender with normal bowel sounds. SKIN: Skin is clear with no lesions or rashes and otherwise unremarkable. NEUROLOGIC: Patient is alert and oriented x3. Cranial nerves II through XII are grossly intact. Motor and sensory are also intact. Normal speech, volume and content. Symmetrical smile. MUSCULOSKELETAL: Normal extremities with adequate strength and full range of motion. No lower extremity swelling or edema. No calf tenderness. LYMPHATICS: No significant lymphadenopathy is noted PSYCHIATRIC: Normal psychiatric evaluation. (Fletcher Soriano) Course Vital Signs 02/04/22 02/04/22 02/04/22 13:56 14:37 15:59 Temperature 97.6 F Pulse Rate 87 73 Respiratory 22 28 H 26 H Rate Blood Pressure 137/76 147/78 O2 Sat by Pulse 87 L 96 Oximetry 02/04/22 16:00 Temperature Pulse Rate 79 Respiratory 28 H Rate Blood Pressure 148/82 O2 Sat by Pulse 95 Oximetry Medical Decision Making <Fletcehr Soriano - Last Filed: 02/04/22 14:48> - Lab Data Result diagrams: 02/04/22 14:40 02/04/22 14:40 <Kj Munroe - Last Filed: 02/04/22 16:39> - Medical Decision Making EKG shows sinus rhythm at 87 bpm CA interval 162 QRS is 170 QT interval 34 and QTC is 394. Patient's EKG shows no ST segment elevation or depression. Dr. munroe will be taking over the care of this patient at 3 PM (Fletcher Soriano) the patient was seen and examined. Care was taken over from previous shift. He had a chest x-ray done which shows evidence of COPD but no other acute processes. The laboratory shows slight elevation of CO2 consistent with his emphysema. He also had a slight anemia. D-dimer and troponin are negative. He states that he's had the symptoms for approximately 4-5 days. He describes to me that it is a sharp pain more so on the lateral right chest radiating into his lateral right back. It is not pleuritic in nature. It is not worse with any movements. He denies any injuries. He does state that his shortness of breath is slightly worse than normal. It is not exertional in nature. 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 He is in no distress on recheck. He is offered admission to the hospital but states that he would prefer to be discharged home. Overall, his chest pain is very atypical for cardiac etiology. It is still felt as though he should have close follow-up with his doctor. Return parameters are discussed. He is instructed to utilize Tylenol and/or Motrin if needed for pain. (Kj Munroe) - Lab Data Lab Results 02/04/22 02/04/22 02/04/22 Range/Units 14:40 14:40 14:40 WBC 5.0 (3.8-10.6) k/uL RBC 3.92 L (4.30-5.90) m/uL Hgb 12.7 L (13.0-17.5) gm/dL Hct 39.5 (39.0-53.0) % MCV 100.8 H (80.0-100.0) fL MCH 32.5 (25.0-35.0) pg MCHC 32.2 (31.0-37.0) g/dL RDW 13.0 (11.5-15.5) % Plt Count 159 (150-450) k/uL MPV 8.1 Neutrophils % 74 % Lymphocytes % 17 % Monocytes % 6 % Eosinophils % 1 % Basophils % 1 % Neutrophils # 3.6 (1.3-7.7) k/uL Lymphocytes # 0.9 L (1.0-4.8) k/uL Monocytes # 0.3 (0-1.0) k/uL Eosinophils # 0.1 (0-0.7) k/uL Basophils # 0.0 (0-0.2) k/uL PT 10.9 (9.0-12.0) sec INR 1.0 (<1.2) APTT 22.0 (22.0-30.0) sec D-Dimer 0.27 (<0.60) mg/L FEU Sodium 140 (137-145) mmol/L Potassium 4.5 (3.5-5.1) mmol/L Chloride 105 (98-107) mmol/L Carbon Dioxide 32 H (22-30) mmol/L Anion Gap 3 mmol/L BUN 19 (9-20) mg/dL Creatinine 1.01 (0.66-1.25) mg/dL Est GFR (CKD-EPI)AfAm 87 (>60 ml/min/1.73 sqM) Est GFR (CKD-EPI)NonAf 75 (>60 ml/min/1.73 sqM) Glucose 110 H (74-99) mg/dL Plasma Lactic Acid Uziel (0.7-2.0) mmol/L Calcium 8.9 (8.4-10.2) mg/dL Magnesium 2.0 (1.6-2.3) mg/dL Total Bilirubin 0.4 (0.2-1.3) mg/dL AST 21 (17-59) U/L ALT 18 (4-49) U/L Alkaline Phosphatase 76 (38-126) U/L Troponin I (0.000-0.034) ng/mL NT-Pro-B Natriuret Pep pg/mL Total Protein 6.5 (6.3-8.2) g/dL Albumin 4.0 (3.5-5.0) g/dL 02/04/22 02/04/22 02/04/22 Range/Units 14:40 14:40 14:49 WBC (3.8-10.6) k/uL RBC (4.30-5.90) m/uL Hgb (13.0-17.5) gm/dL Hct (39.0-53.0) % MCV (80.0-100.0) fL MCH (25.0-35.0) pg MCHC (31.0-37.0) g/dL RDW (11.5-15.5) % Plt Count (150-450) k/uL MPV Neutrophils % % Lymphocytes % % Monocytes % % Eosinophils % % Basophils % % Neutrophils # (1.3-7.7) k/uL Lymphocytes # (1.0-4.8) k/uL Monocytes # (0-1.0) k/uL Eosinophils # (0-0.7) k/uL Basophils # (0-0.2) k/uL PT (9.0-12.0) sec INR (<1.2) APTT (22.0-30.0) sec D-Dimer (<0.60) mg/L FEU Sodium (137-145) mmol/L Potassium (3.5-5.1) mmol/L Chloride (98-107) mmol/L Carbon Dioxide (22-30) mmol/L Anion Gap mmol/L BUN (9-20) mg/dL Creatinine (0.66-1.25) mg/dL Est GFR (CKD-EPI)AfAm (>60 ml/min/1.73 sqM) Est GFR (CKD-EPI)NonAf (>60 ml/min/1.73 sqM) Glucose (74-99) mg/dL Plasma Lactic Acid Uziel 1.1 (0.7-2.0) mmol/L Calcium (8.4-10.2) mg/dL Magnesium (1.6-2.3) mg/dL Total Bilirubin (0.2-1.3) mg/dL AST (17-59) U/L ALT (4-49) U/L Alkaline Phosphatase (38-126) U/L Troponin I <0.012 (0.000-0.034) ng/mL NT-Pro-B Natriuret Pep 195 pg/mL Total Protein (6.3-8.2) g/dL Albumin (3.5-5.0) g/dL Disposition <Fletcher Soriano - Last Filed: 02/04/22 14:48> Is patient prescribed a controlled substance at d/c from ED?: No Time of Disposition: 16:39 <Kj Munroe - Last Filed: 02/04/22 16:39> Clinical Impression: Right-sided chest pain, COPD (chronic obstructive pulmonary disease) Disposition: HOME SELF-CARE Condition: Good Instructions (If sedation given, give patient instructions): Chest Pain (ED) Referrals: Sujit Lai MD [Primary Care Provider] - 1-2 days
[2022-02-04 15:04] LABS: Basophils % (A) 1 %; Eosinophils # (A) 0.1 k/uL (0-0.7); Eosinophils % (A) 1 %; HCT 39.5 % (39.0-53.0); HGB 12.7 gm/dL (13.0-17.5); Lymphocytes # (A) 0.9 k/uL (1.0-4.8); Lymphocytes % (A) 17 %; MCH 32.5 pg (25.0-35.0); MCHC 32.2 g/dL (31.0-37.0); MCV 100.8 fL (80.0-100.0); Mean Platelet Volume 8.1; Monocytes # (A) 0.3 k/uL (0-1.0); Monocytes % (A) 6 %; Neutrophils # (A) 3.6 k/uL (1.3-7.7); Neutrophils % (A) 74 %; Platelet Count 159 k/uL (150-450); RBC 3.92 m/uL (4.30-5.90)
[2022-02-04 15:25] LABS: Calcium 8.9 mg/dL (8.4-10.2); Potassium 4.5 mmol/L (3.5-5.1); Prothrombin Time 10.9 sec (9.0-12.0); Total Bilirubin 0.4 mg/dL (0.2-1.3); Total Protein 6.5 g/dL (6.3-8.2)
--- NOTE | 2022-02-04 15:53 | XR ---
EXAMINATION TYPE: XR chest 2V DATE OF EXAM: 02/04/2022 COMPARISON: Chest x-ray 08/01/2019, CT chest 04/09/2019 HISTORY: Chest pain TECHNIQUE: Frontal and lateral views of the chest are obtained. FINDINGS: There is no focal air space opacity, pleural effusion, or pneumothorax seen. Biapical pleu ral thickening is stable. Patient is rotated. There are overlying leads. Interstitium is increased. T he cardiac silhouette size is within normal limits. The osseous structures are intact. IMPRESSION: No acute cardiopulmonary process. There is underlying interstitial disease, emphysema.
[2022-02-04 16:52] VITALS: BP 163/94; PULSE 76; RESP 24
== END 2022-02-04 16:45 | disposition home or self-care (01) ==
LOC: EC 13:51
DX: J44.9 Chronic obstructive pulmonary disease, unspecified (principal); F17.200 Nicotine dependence, unspecified, uncomplicated; I25.2 Old myocardial infarction; E78.5 Hyperlipidemia, unspecified; Z79.899 Other long term (current) drug therapy; Z79.51 Long term (current) use of inhaled steroids
CPT/HCPCS: 36415; 93005; 85379; 83880; 80053; 83605; 83735; 84484; 85025; 85610; 85730; 71046; 99285; 96374; J1885